=== PATIENT | male | born 1950 | race Caucasian/White ===

== ENCOUNTER 2020-07-18 18:40 | Emergency (ER) | payer OTHER ==
[2020-07-18 19:01] VITALS: BP 151/91; PULSE 86
--- NOTE | 2020-07-18 19:18 | EDM.PDOC ---
ED HPI GENERAL MEDICAL PROBLEM - General Chief Complaint: General Stated Complaint: fish hook right index finger Time Seen by Provider: 07/18/20 19:18 Source of Information: Reports: Patient History Limitations: Reports: No Limitations - History of Present Illness INITIAL COMMENTS - FREE TEXT/NARRATIVE: Brian, 69-year-old male, was fishing today catching a small walleye that was flopping on his jig. As he was removing the 2 hooks from the fish's mouth, fish flipped causing the lower to flip around and place 1 of the rear treble hook into the tissue of the index finger. His fishing partner was able to load the boat and drive back when he stabilized the lower as it was quite painful. They were [place] hours drive from the [facility]. Is unsure of his tetanus status questioning if it is 10 years or more. Onset: Today, Sudden Duration: Hour(s): Location: Reports: Upper Extremity, Right Quality: Reports: Pressure, Sharp Severity: Moderate Improves with: Reports: None Worsens with: Reports: Movement Context: Reports: Activity Associated Symptoms: Reports: No Other Symptoms Right Finger-Index Pain Score (Numeric/FACES): 5 - Related Data Allergies Allergy/AdvReac Type Severity Reaction Status Date / Time No Known Allergies Allergy Verified 07/18/20 18:57 Home Meds: Home Meds Omeprazole 20 mg PO DAILY PRN 12/30/13 [History] Acetaminophen [Tylenol Extra Strength] 500 mg PO DAILY PRN 09/29/15 [History] Etanercept [Enbrel] 1 ampule SQ WEEKLY 09/29/15 [History] Tamsulosin HCl 0.4 mg PO DAILY 09/29/15 [History] Doxycycline Hyclate 100 mg PO BID 7 Days #14 tablet. 07/18/20 [Rx] Past Medical History Genitourinary History: Reports: Prostate Disorder Other Musculoskeletal History: recent L hip replacement Dermatologic History: Reports: Psoriasis - Past Surgical History Musculoskeletal Surgical History: Reports: Hip Replacement, Knee Replacement Social & Family History - Family History Family Medical History: Noncontributory - Tobacco Use Smoking Status *Q: Never Smoker - Caffeine Use Caffeine Use: Reports: Soda - Recreational Drug Use Recreational Drug Use: No ED ROS GENERAL - Review of Systems Review Of Systems: Comprehensive ROS is negative, except as noted in HPI. ED EXAM, GENERAL - Physical Exam Exam: See Below Free Text/Narrative:: Alert oriented in mild distress trouble hook under the nailbed of the right index finger. There is no active bleeding No respiratory distress is noted, no audible wheezes no crackles. Pulses regular Denies any other symptoms concerns or injury. [place] is embedded slightly under the nail cuticle. ED GENERAL MEDICAL PROCEDURES - Additional/Other Procedure(s) Other (Free Text) Procedure(s): The hooks and barbs were taped to avoid incidental injury. The forward trouble was taped in its entirety. I was unable to tie old silk thread after cutting the needle free in a square knot fashion around the shank/curve of the fishhook. With direct pressure downward on the shaft of the hook a quick jerk on the 0 silk easily released the embedded hook. Tolerated it well with very minimal bleeding with a drop forming on the nailbed easily compressed. Tetanus status was updated. Doxycycline antibiotic was instituted 100 mg here with 100 twice daily for 7 days prophylactic for the embedded hook that was easily removed. Course - Vital Signs Last Recorded V/S: Last Vital Signs Temp 37.6 C 07/18/20 18:57 Pulse 86 07/18/20 18:57 Resp 16 07/18/20 18:57 BP 151/91 H 07/18/20 18:57 Pulse Ox 96 07/18/20 18:57 - Orders/Labs/Meds Orders: Active Orders 24 hr Category Date Time Status Vaccines to be Administered [RC] PER UNIT ROUTINE Care 07/18/20 19:16 Active Meds: Medications Discontinued Medications Generic Name Dose Route Start Last Admin Trade Name Nixonq PRN Reason Stop Dose Admin Diphtheria/Tetanus/Acell Pertussis 0.5 ml 07/18/20 19:16 07/18/20 19:19 Adacel IM 07/18/20 19:17 0.5 ml .ONCE ONE Administration Doxycycline Hyclate 100 mg 07/18/20 19:35 07/18/20 19:44 Vibramycin PO 07/18/20 19:36 100 mg ONETIME ONE Administration Departure - Departure Time of Disposition: 19:40 Disposition: Home, Self-Care 01 Condition: Good Clinical Impression: Fish hook injury of finger of right hand Qualifiers: Encounter type: initial encounter Qualified Code(s): S69.91XA - Unspecified injury of right wrist, hand and finger(s), initial encounter - Discharge Information *PRESCRIPTION DRUG MONITORING PROGRAM REVIEWED*: Not Applicable *COPY OF PRESCRIPTION DRUG MONITORING REPORT IN PATIENT KENNETH: Not Applicable Prescriptions: Doxycycline Hyclate 100 mg PO BID 7 Days #14 tablet.dr Forms: ED Department Discharge Additional Instructions: take doxycycline twice daily for 7 days. Keep clean and dry as possible. Recheck as needed Sepsis Event Note (ED) - Evaluation Sepsis Screening Result: No Definite Risk - Focused Exam Vital Signs: Vital Signs Temp Pulse Resp BP Pulse Ox 07/18/20 18:57 37.6 C 86 16 151/91 H 96 - Problem List & Annotations (1) Fish hook injury of finger of right hand SNOMED Code(s): 80498648 Code(s): S69.91XA - UNSP INJURY OF RIGHT WRIST, HAND AND FINGER(S), INIT ENCNTR Status: Acute Priority: High Qualifiers: Encounter type: initial encounter Qualified Code(s): S69.91XA - Unspecified injury of right wrist, hand and finger(s), initial encounter - Problem List Review Problem List Initiated/Reviewed/Updated: Yes - My Orders Last 24 Hours: My Active Orders 07/18/20 19:16 Vaccines to be Administered [RC] PER UNIT ROUTINE - Assessment/Plan Last 24 Hours: My Active Orders 07/18/20 19:16 Vaccines to be Administered [RC] PER UNIT ROUTINE Plan: take doxycycline twice daily for 7 days. Keep clean and dry as possible. Recheck as needed. `
[2020-07-18] MEDS: Diphtheria,Pertussis(Acell),Tetanus Vaccine 0.5 ML SDV IM ONE (19:19)
== END 2020-07-18 19:47 | disposition home or self-care (01) ==
LOC: KA.ED 18:40
DX: S60.450A Superficial foreign body of right index finger, initial encounter (principal); Z23 Encounter for immunization; W45.8XXA Other foreign body or object entering through skin, initial encounter
CPT/HCPCS: 90471; 90715; 99283; A9270-GY

== ENCOUNTER 2023-01-28 09:36 | Inpatient (IN) | payer OTHER ==
[2023-01-28] MEDS ORDERED: Sodium Chloride 0.9% 1,000 ML IV ONE ×2 (09:53→12:11)
[2023-01-28 10:53] LABS: ANION GAP 15.5 mmol/L (5-15)
[2023-01-28 11:16] LABS: HEMOGLOBIN A1C 12.7 % (4.3-5.7)
[2023-01-28] MEDS ORDERED: Sodium Chloride 0.9% 1,000 ML ONE (12:09)
[2023-01-28] MEDS ORDERED: cefTRIAXone 1 GM Vial IVPUSH ONE (12:12)
[2023-01-28] MEDS ORDERED: 50% Dextrose in Water 50 ML Syringe IVPUSH PRN ×4 (12:12→21:51)
[2023-01-28] MEDS ORDERED: Insulin Lispro 100 Unit/ML 3 ML KwikPen SUBCUT ONE ×4 (12:12→21:51)
[2023-01-28] MEDS ORDERED: Glucagon,Human Recombinant 1 MG Vial IM PRN ×4 (12:12→21:51)
[2023-01-28 12:18] LABS: O2 DELIVERY DEVICE ROOM AIR
[2023-01-28 12:23] LABS: O2 SATURATION ARTERIAL 96 %; PCO2 ARTERIAL 31 mmHG (35-48); PO2 ARTERIAL 82 mmHG (83-108)
[2023-01-28 12:24] LABS: BASE EXCESS ARTERIAL -4 mmol/L ((-2)-(+3)); BICARBONATE,ARTERIAL 20 mmol/L (21-28)
[2023-01-28] MEDS ORDERED: Sodium Chloride 0.9% 1,000 ML IV SCH (16:00)
[2023-01-28 18:49] LABS: CORONAVIRUS COVID-19 NAA NEGATIVE (NEGATIVE); RESPIRATORY SYNCYTIAL VIR NAA NEGATIVE (NEGATIVE)
[2023-01-28] MEDS ORDERED: DOPamine/Dextrose 5%-Water 400 MG/250 ML BAG IV SCH (19:30)
[2023-01-28] MEDS ORDERED: Insulin Glargine,Hum.Rec.Anlog 100 UNIT/ML 3 ML Pen SUBCUT SCH (20:35)
[2023-01-28] MEDS ORDERED: NS + KCl 20mEq/L 1,000 ML IV SCH (20:45)
[2023-01-28] MEDS ORDERED: Insulin Glargine,Hum.Rec.Anlog 100 UNIT/ML 3 ML Pen SUBCUT ONE (20:50)
[2023-01-28] MEDS: predniSONE 10 MG Tab PO SCH (22:01)
[2023-01-28] MEDS: Famotidine 20 MG Tab PO SCH (22:01)
[2023-01-28] MEDS: OLANZapine 5 MG Tab PO SCH (22:01)
[2023-01-28] MEDS: Nystatin Susp 100,000 Unit/ML 5 ML UD Cup PO SCH (22:03)
[2023-01-28] MEDS: Acetaminophen 500 MG Tab PO PRN (22:34)
[2023-01-29] MEDS ORDERED: NS + KCl 20mEq/L 1,000 ML IV SCH ×2 (02:00→09:00)
[2023-01-29 07:37] LABS: ANION GAP 13.6 mmol/L (5-15)
[2023-01-29] MEDS ORDERED: Insulin Glargine,Hum.Rec.Anlog 100 UNIT/ML 3 ML Pen SUBCUT ONE ×3 (08:00→23:06)
[2023-01-29] MEDS ORDERED: Insulin Regular, Human 100 Units/ML 10 ML Vial SUBCUT SCH (08:00)
[2023-01-29] MEDS ORDERED: Furosemide 40 MG/4 ML VIAL IVPUSH ONE (08:06)
[2023-01-29] MEDS: Nystatin Susp 100,000 Unit/ML 5 ML UD Cup PO SCH ×4 (08:21→20:12)
[2023-01-29] MEDS: predniSONE 10 MG Tab PO SCH ×2 (08:21→20:13)
[2023-01-29] MEDS: Tamsulosin 0.4 MG Cap.ER PO SCH (08:21)
[2023-01-29] MEDS: Famotidine 20 MG Tab PO SCH ×2 (08:22→20:13)
[2023-01-29] MEDS: Cholecalciferol (Vitamin D3) 25 MCG Tab PO SCH (08:22)
[2023-01-29] MEDS: Insulin Regular, Human 100 Units/ML 10 ML Vial SUBCUT SCH ×4 (08:33→21:45)
[2023-01-29] MEDS ORDERED: Insulin Regular, Human 100 Units/ML 10 ML Vial IV ONE (11:23)
[2023-01-29] MEDS: cefTRIAXone 1 GM Vial IVPUSH SCH (12:27)
[2023-01-29] MEDS ORDERED: Sodium Chloride 0.9% 1,000 ML IV SCH (12:45)
[2023-01-29] MEDS ORDERED: ENBREL SUBCUT SCH (13:00)
[2023-01-29] MEDS: OLANZapine 5 MG Tab PO SCH (20:13)
[2023-01-29] MEDS ORDERED: Insulin Regular, Human 100 Units/ML 10 ML Vial SUBCUT ONE (23:04)
[2023-01-30] MEDS: Insulin Regular, Human 100 Units/ML 10 ML Vial SUBCUT SCH ×4 (07:41→21:22)
[2023-01-30] MEDS ORDERED: Insulin Glargine,Hum.Rec.Anlog 100 UNIT/ML 3 ML Pen SUBCUT ONE (08:00)
[2023-01-30] MEDS: Nystatin Susp 100,000 Unit/ML 5 ML UD Cup PO SCH ×4 (08:18→21:14)
[2023-01-30] MEDS: Famotidine 20 MG Tab PO SCH ×2 (08:18→21:14)
[2023-01-30] MEDS: Cholecalciferol (Vitamin D3) 25 MCG Tab PO SCH (08:18)
[2023-01-30] MEDS: predniSONE 10 MG Tab PO SCH ×2 (08:19→21:14)
[2023-01-30] MEDS: Tamsulosin 0.4 MG Cap.ER PO SCH (08:19)
[2023-01-30 10:26] LABS: ANION GAP 12.4 mmol/L (5-15)
[2023-01-30] MEDS: Fluconazole 100 MG Tab PO SCH (11:23)
[2023-01-30] MEDS: cefTRIAXone 1 GM Vial IVPUSH SCH (12:36)
[2023-01-30] MEDS ORDERED: Insulin Glargine,Hum.Rec.Anlog 100 UNIT/ML 3 ML Pen SUBCUT SCH (21:00)
[2023-01-30] MEDS: Acetaminophen 500 MG Tab PO PRN (21:14)
[2023-01-30] MEDS: OLANZapine 5 MG Tab PO SCH (21:14)
[2023-01-31 07:52] LABS: ANION GAP 14.2 mmol/L (5-15)
[2023-01-31] MEDS: Insulin Regular, Human 100 Units/ML 10 ML Vial SUBCUT SCH ×2 (08:11→11:40)
[2023-01-31] MEDS: Fluconazole 100 MG Tab PO SCH (08:12)
[2023-01-31] MEDS: Nystatin Susp 100,000 Unit/ML 5 ML UD Cup PO SCH (08:12)
[2023-01-31] MEDS: Tamsulosin 0.4 MG Cap.ER PO SCH (08:13)
[2023-01-31] MEDS: Cholecalciferol (Vitamin D3) 25 MCG Tab PO SCH (08:13)
[2023-01-31] MEDS: Famotidine 20 MG Tab PO SCH (08:13)
[2023-01-31] MEDS: predniSONE 10 MG Tab PO SCH (08:14)
[2023-01-31] MEDS ORDERED: Finasteride 5 MG Tab PO SCH (09:00)
[2023-01-31] MEDS: cefTRIAXone 1 GM Vial IVPUSH SCH (11:53)
[2023-01-31 12:33] VITALS: BP 134/81; PULSE 80
== END 2023-01-31 12:49 | disposition home or self-care (01) | DRG 638 ==
LOC: KA.ED 09:36 → KA.MS 12:15
PROVIDERS: ADMIT Family Medicine; ATTEND Family Medicine
DX: E11.00 Type 2 diabetes mellitus with hyperosmolarity without nonketotic hyperglycemic-hyperosmolar coma (NKHHC) (principal); E87.1 Hypo-osmolality and hyponatremia; E87.20 Acidosis, unspecified; N39.0 Urinary tract infection, site not specified; E11.65 Type 2 diabetes mellitus with hyperglycemia; I95.9 Hypotension, unspecified; Z20.822 Contact with and (suspected) exposure to COVID-19; E87.5 Hyperkalemia; D64.9 Anemia, unspecified; D69.6 Thrombocytopenia, unspecified; E83.51 Hypocalcemia; E88.09 Other disorders of plasma-protein metabolism, not elsewhere classified; R74.01 Elevation of levels of liver transaminase levels; R77.9 Abnormality of plasma protein, unspecified; N40.0 Benign prostatic hyperplasia without lower urinary tract symptoms; E55.9 Vitamin D deficiency, unspecified; Z96.642 Presence of left artificial hip joint; Z96.659 Presence of unspecified artificial knee joint; L40.50 Arthropathic psoriasis, unspecified; K29.70 Gastritis, unspecified, without bleeding; Z85.528 Personal history of other malignant neoplasm of kidney; Z79.899 Other long term (current) drug therapy; Z87.891 Personal history of nicotine dependence; Z79.52 Long term (current) use of systemic steroids
CPT/HCPCS: 0241U; 36415; 36600; 70450; 71045; 80053; 81001; 82803; 82947; 83036; 83605; 84132; 84484; 85025; 87040; 87086; 87088; 87186; 93010; 96361; 96374; 99284; 99285-25; A9270-GY; J0696; J1815-GY; J1940; J3480; J7030; J7512

== ENCOUNTER 2023-02-04 10:37 | Emergency (ER) | payer OTHER ==
[2023-02-04 11:14] VITALS: BP 112/65; PULSE 78
[2023-02-04 11:18] LABS: ANION GAP 15.1 mmol/L (5-15)
== END 2023-02-04 11:40 | disposition home or self-care (01) ==
LOC: KA.ED 10:37
DX: E11.65 Type 2 diabetes mellitus with hyperglycemia (principal); N40.0 Benign prostatic hyperplasia without lower urinary tract symptoms; Z79.4 Long term (current) use of insulin; Z79.899 Other long term (current) drug therapy
CPT/HCPCS: 36415; 80048; 99283; 99284

== ENCOUNTER 2023-02-05 16:30 | Emergency (ER) | payer OTHER ==
[2023-02-05] MEDS ORDERED: Sodium Chloride 0.9% 10 ML Syringe FLUSH PRN (16:47)
[2023-02-05 17:16] LABS: O2 DELIVERY DEVICE ROOM AIR
[2023-02-05] MEDS: Sodium Chloride 0.9% 1,000 ML IV ONE (17:17)
[2023-02-05] MEDS: Sodium Chloride 0.9% 1,000 ML ONE (17:17)
[2023-02-05 17:30] LABS: ANION GAP 15.1 mmol/L (5-15)
[2023-02-05 17:32] LABS: PCO2 VENOUS 31 mmHG (41-51); PH,VENOUS 7.47 (7.31-7.41); PO2 VENOUS 58 mmHG
[2023-02-05 17:33] LABS: BICARBONATE,VENOUS 23 mmol/L (23-28); O2 SATURATION VENOUS 92 %
[2023-02-05 18:09] VITALS: BP 127/79; PULSE 80
== END 2023-02-05 18:20 | disposition home or self-care (01) ==
LOC: KA.ED 16:30
DX: E11.65 Type 2 diabetes mellitus with hyperglycemia (principal); K21.9 Gastro-esophageal reflux disease without esophagitis; N40.0 Benign prostatic hyperplasia without lower urinary tract symptoms; Z79.899 Other long term (current) drug therapy; Z79.4 Long term (current) use of insulin
CPT/HCPCS: 80048; 82803; 82947; 85025; 96360; 99284; 99284-25; J7030